=== PATIENT | male | born 1995 | race Caucasian/White ===

== ENCOUNTER 2019-02-18 16:32 | Emergency (ER) | payer OTHER, SELFPAY ==
[2019-02-18] VITALS (13 sets, daily range): BP systolic 130–149; BP diastolic 73–102; PULSE 64–90; RESP 11–20; TEMP 36.5–36.9; O2SAT 100
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
--- NOTE | 2019-02-18 16:52 | DI.RAD.S_ITS ---
PROCEDURE: XR WRIST LT 2V INDICATIONS: deformity TECHNIQUE: 2 views of the wrist were acquired. COMPARISON: [facility], CR, XR CHEST 1V, 02/18/2019, 16:46. FINDINGS: Bones: Moderately angulated fractures are seen in the distal radial shaft and the distal ulnar shaft. The fracture fragments demonstrate overlapping fragments, with foreshortening. No definite intra-articular involvement can be seen. No fractures of the carpus can be seen. Soft tissues: No suspicious soft tissue calcifications. IMPRESSION: Fractures of the distal radial shaft and distal ulnar shaft can be seen, with angulation and overlapping of fragments. Dictated by: Jaden Madrid M.D. on 02/18/2019 at 16:08 Approved by: Jaden Madrid M.D. on 02/18/2019 at 16:09
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
--- NOTE | 2019-02-18 16:53 | PC.NURSE ---
Late Entry-applied rigid c collar upon arriving to triage from POV
[2019-02-18 17:05] LABS: Add Manual Diff / Slide Review NO; Basophils Absolute Auto 100 /uL (0-100); Basophils Percent Auto 0.9 % (0-2); Eosinophils Absolute Auto 200 /uL (0-450); Eosinophils Percent Auto 1.3 % (2-4); Hematocrit 45.7 % (41-53); Hemoglobin 15.4 g/dL (13.5-17.5); Lymphocytes Absolute Auto 3100 /uL (1100-4500); Mean Corpuscular HGB Conc 33.7 % (30-36); Mean Corpuscular Volume 86.2 fL (80-100); Monocytes Absolute Auto 800 /uL (0-900); Monocytes Percent Auto 6.2 % (3-14); Neutrophils Absolute Auto 8300 /uL (1500-7000); Neutrophils Percent Auto 66.6 % (50-75); Platelet Count 226 X10^3/uL (150-400); White Blood Cell Count 12.5 X10^3/uL (4.5-11.0)
[2019-02-18 17:14] LABS: Alanine Aminotransferase 33 IU/L (21-72); Albumin 4.7 g/dL (3.5-5.0); Albumin Globulin Ratio 1.9 (1.0-2.8); Alkaline Phosphatase 55 U/L (38-126); Aspartate Aminotransferase 27 IU/L (17-59); Bilirubin Total 0.4 mg/dL (0.2-1.3); Blood Urea Nitrogen 18 mg/dL (9-20); Calcium 9.5 mg/dL (8.4-10.2); Carbon Dioxide 25 mmol/L (22-32); Chloride 100 mmol/L (98-107); Estimated Glomerular Filt Rate > 60.0 mL/min (>60); Ethanol (ETOH) < 10 mg/dL; Globulin 2.5 g/dL (1.7-4.1); Glucose 174 mg/dL (70-100); HEMOLYSIS 20 (0-50); Lipase 43 U/L (23-300); Potassium 3.7 mmol/L (3.4-5.1); Sodium 138 mmol/L (137-145); Total Protein 7.2 g/dL (6.3-8.2)
[2019-02-18] MEDS: HYDROMORPHONE 1 MG INJ IV (17:15)
[2019-02-18] MEDS: PROPOFOL 200 MG/20 ML VIAL 70 MG IV (17:20)
--- NOTE | 2019-02-18 17:29 | DI.RAD.S_ITS ---
PROCEDURE: XR WRIST LT 2V INDICATIONS: POST REDUCTION TECHNIQUE: 2 views of the wrist were acquired. COMPARISON: [facility], CR, XR WRIST LT 2V, 02/18/2019, 16:53. FINDINGS: Improved alignment of the distal radius and ulnar shaft fractures is evident. However, there continues to be radial displacement of the distal ulna shaft fracture by the width of the shaft. There is dorsal displacement of the distal radial shaft fracture by the width of the shaft with mild overlapping by approximately 10 mm. There also is overriding of the distal ulnar fracture, as well. No new fractures are identified. There is an overlying cast. IMPRESSION: Improved alignment of the distal left radius and ulna shaft fractures, status post closed reduction with residual overriding and displacement, as described above. Dictated by: Shoaib Santos M.D. on 02/18/2019 at 16:46 Approved by: Shoaib Santos M.D. on 02/18/2019 at 16:47
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
[2019-02-18] MEDS: DIPHTH,PERTUSS(ACELL),TET VAC 0.5 ML SYRINGE IM (17:40)
== END 2019-02-18 19:00 | disposition home or self-care (01) ==
PROVIDERS: Emergency Provider Emergency Medicine
DX: S52.92XA Unspecified fracture of left forearm, initial encounter for closed fracture (principal); S81.812A Laceration without foreign body, left lower leg, initial encounter; V86.56XA Driver of dirt bike or motor/cross bike injured in nontraffic accident, initial encounter
CPT/HCPCS: 12032; 25605; 29125; 36591; 70450; 71045; 71260; 72125; 73100; 73560; 74177; 80053; 80320; 83690; 85025; 86850; 86900; 86901; 90715; 93005; 96374; 99152; 99285; J1170; J2704